=== PATIENT | female | born 1960 | race Caucasian/White ===

== ENCOUNTER → 2023-11-05 | Outpatient (CLI) | payer OTHER | LOC: M PLAIMG 13:53 | PROVIDERS: ATTEND Physician Assistant | DX: R31.0 Gross hematuria (principal) ==

== ENCOUNTER → 2023-11-16 | Outpatient (REF) | payer OTHER | LOC: M LABSMT 13:44 | PROVIDERS: ATTEND Urology | DX: R31.0 Gross hematuria (principal) ==

== ENCOUNTER 2023-12-13 07:04 | Day surgery (SDC) | payer OTHER ==
[~2023-12-13] VITALS: Ht 157.5 cm; Wt 78.7 kg
[~2023-12-13 07:04] MED LIST: B-12100010 PO; FAMO40TA3 PO; GENT28CA2 PO; INSU100V6 SQ; LANTINJ4 SC; LISI20TA33 PO; LOSA100T46 PO; MELO15TA28 PO; MYRB50TA PO; ONDA-84 PO; PANT40TA29 PO; TRAM50TA2 PO; VENL150C43 PO; VITA100093 PO; VITA250T27 PO
[2023-12-13] MEDS: LR 1,000 ML IV SCH (08:34)
[2023-12-13] MEDS ORDERED: fentaNYL 250 MCG/5 ML INJECTION As Ordered ONE (09:45)
[2023-12-13] MEDS ORDERED: MIDAZOLAM INJ 2MG/2ML VIAL As Ordered ONE (09:45)
[2023-12-13] MEDS ORDERED: ROCURONIUM BROMIDE 50MG/5ML VIAL As Ordered ONE (09:45)
[2023-12-13] MEDS ORDERED: propofoL 200 MG/20 ML VIAL As Ordered ONE (09:45)
[2023-12-13] MEDS ORDERED: dexmedeTOMIDine (4MCG/ML)200MCG/50ML BTL (PRECEDEX) As Ordered ONE (09:45)
[2023-12-13] MEDS ORDERED: LIDOCAINE 2% 100MG/5ML SDV (FOR ANES.) As Ordered ONE (09:45)
[2023-12-13] MEDS ORDERED: ONDANSETRON 4MG 2ML VIAL As Ordered ONE (09:45)
[2023-12-13] MEDS: ceFAZolin SOD 2 GM in IV 1 EA IV ONE (10:10)
[2023-12-13] MEDS: MITOMYCIN 40MG IN 40ML SWFI SYRINGE INTRAVESIC ONE (10:25)
[2023-12-13] MEDS ORDERED: SUGAMMADEX SODIUM 500 MG/5 ML VIAL (BRIDION) As Ordered ONE (10:33)
[2023-12-13] MEDS ORDERED: MACR100C43 PO (10:42)
[2023-12-13] MEDS ORDERED: PYRI1TAB5 PO (10:42)
[2023-12-13] MEDS ORDERED: OXYB5TAB14 PO (10:42)
[2023-12-13] MEDS ORDERED: LABETALOL 100MG/20ML VIAL As Ordered ONE (10:44)
[2023-12-13] MEDS ORDERED: oxyCODONE 5MG TAB PO PRN (10:45)
[2023-12-13] MEDS ORDERED: fentaNYL 100 MCG/2 ML INJECTION IV PRN (10:45)
[2023-12-13] MEDS ORDERED: ALBUTEROL 6.7GM INHALER **FOR ANES. CART/OMNICELL ONLY As Ordered ONE (10:49)
[2023-12-13] MEDS ORDERED: MORPHINE 2 MG/ML 1ML VIAL As Ordered ONE (11:15)
[2023-12-13] MEDS: ONDANSETRON 4MG 2ML VIAL IV PRN (11:17)
[2023-12-13] MEDS: MORPHINE 2 MG/ML 1ML VIAL IV PRN (11:17)
[2023-12-13] MEDS: METOCLOPRAMIDE INJ 10MG/2ML VIAL IV ONE (11:33)
[2023-12-13 13:05] VITALS: BP 158/76; TEMP 97.5; O2SAT 94
== END 2023-12-13 14:23 | disposition home or self-care (01) ==
LOC: M SDC 07:04
PROVIDERS: ATTEND Urology
DX: C67.9 Malignant neoplasm of bladder, unspecified (principal); I10 Essential (primary) hypertension; E11.9 Type 2 diabetes mellitus without complications; K57.92 Diverticulitis of intestine, part unspecified, without perforation or abscess without bleeding; K21.9 Gastro-esophageal reflux disease without esophagitis; F12.10 Cannabis abuse, uncomplicated; Z87.891 Personal history of nicotine dependence; D64.9 Anemia, unspecified; M79.7 Fibromyalgia; F41.9 Anxiety disorder, unspecified; F32.A Depression, unspecified; Z79.4 Long term (current) use of insulin; Z79.899 Other long term (current) drug therapy; G47.33 Obstructive sleep apnea (adult) (pediatric); Z88.5 Allergy status to narcotic agent; Z88.1 Allergy status to other antibiotic agents; Z91.011 Allergy to milk products; Z91.013 Allergy to seafood; Z88.8 Allergy status to other drugs, medicaments and biological substances; Z88.0 Allergy status to penicillin; Z88.2 Allergy status to sulfonamides
CPT/HCPCS: 51720; 52235; 52332; 88307; C2617; J0690; J1100; J1920; J2250; J2405; J2765; J3010; J9280

== ENCOUNTER → 2024-01-24 | Outpatient (REF) | payer OTHER ==
[~2024-01-24] MED LIST changes: +MACR100C43 PO; +OXYB5TAB14 PO; +PYRI1TAB5 PO
[2024-01-24 14:41] LABS: APPEARANCE, URINE HAZY (CLEAR); BACTERIA, URINE AUTO 1+ (NEGATIVE); BILIRUBIN, URINE AUTO NEGATIVE (NEGATIVE); BLOOD, URINE BLOOD 3+ (NEGATIVE); COLOR, URINE YELLOW (YELLOW); GLUCOSE, URINE (UA) AUTO 1+ mg/dL (NEGATIVE); KETONE, URINE AUTO NEGATIVE (NEGATIVE); LEUKOCYTE ESTERASE, URINE AUTO 1+ (NEGATIVE); MUCUS, URINE SMALL (NEGATIVE); NITRITE, URINE AUTO NEGATIVE (NEGATIVE); PROTEIN, URINE AUTO 2+ mg/dL (NEGATIVE); RBC, URINE AUTO TNTC /HPF (0-3); SPECIFIC GRAVITY URINE AUTO 1.015 (1.002-1.035); SQUAMOUS EPITHELIAL CELL UR AU 1 /HPF (0-6); WBC, URINE AUTO 87 /HPF (0-3)
== END ==
LOC: M SMT 12:28
PROVIDERS: ATTEND Nurse Practitioner Family
DX: C67.9 Malignant neoplasm of bladder, unspecified (principal)

== ENCOUNTER → 2024-06-27 | Outpatient (REF) | payer OTHER ==
[2024-06-27 18:31] LABS: APPEARANCE, URINE HAZY (CLEAR); BACTERIA, URINE AUTO NEGATIVE (NEGATIVE); BILIRUBIN, URINE AUTO NEGATIVE (NEGATIVE); BLOOD, URINE BLOOD NEGATIVE (NEGATIVE); COLOR, URINE YELLOW (YELLOW); GLUCOSE, URINE (UA) AUTO 1+ mg/dL (NEGATIVE); KETONE, URINE AUTO NEGATIVE (NEGATIVE); LEUKOCYTE ESTERASE, URINE AUTO 2+ (NEGATIVE); NITRITE, URINE AUTO NEGATIVE (NEGATIVE); PROTEIN, URINE AUTO NEGATIVE (NEGATIVE); RBC, URINE AUTO 1 /HPF (0-3); SPECIFIC GRAVITY URINE AUTO 1.017 (1.002-1.035); SQUAMOUS EPITHELIAL CELL UR AU 4 /HPF (0-6); UROBILINOGEN, URINE AUTO 0.2 mg/dL (0.0-2.0); WBC, URINE AUTO 4 /HPF (0-3)
== END ==
LOC: M SMT 17:33
PROVIDERS: ATTEND Urology
DX: Z85.51 Personal history of malignant neoplasm of bladder (principal)

== ENCOUNTER → 2024-11-28 | Outpatient (REF) | payer OTHER ==
[2024-11-28 18:54] LABS: APPEARANCE, URINE CLOUDY (CLEAR); BACTERIA, URINE AUTO 1+ (NEGATIVE); BILIRUBIN, URINE AUTO NEGATIVE (NEGATIVE); BLOOD, URINE BLOOD NEGATIVE (NEGATIVE); GLUCOSE, URINE (UA) AUTO 1+ mg/dL (NEGATIVE); KETONE, URINE AUTO NEGATIVE (NEGATIVE); LEUKOCYTE ESTERASE, URINE AUTO 3+ (NEGATIVE); MUCUS, URINE SMALL (NEGATIVE); NITRITE, URINE AUTO POSITIVE (NEGATIVE); PROTEIN, URINE AUTO NEGATIVE (NEGATIVE); RBC, URINE AUTO 5 /HPF (0-3); SPECIFIC GRAVITY URINE AUTO 1.019 (1.002-1.035); SQUAMOUS EPITHELIAL CELL UR AU 4 /HPF (0-6); TRANSITIONAL EPITHELIAL AUTO 1 /HPF; UROBILINOGEN, URINE AUTO 0.2 mg/dL (0.0-2.0); WBC, URINE AUTO TNTC /HPF (0-3)
== END ==
LOC: M SMT 16:49
PROVIDERS: ATTEND Urology
DX: N39.41 Urge incontinence (principal); Z79.899 Other long term (current) drug therapy; Z85.51 Personal history of malignant neoplasm of bladder